=== PATIENT | male | born 1980 | race Native Hawaiian/Other Pacific Islander ===

== ENCOUNTER 2019-06-12 12:16 | Emergency (ER) | payer BC ==
[~2019-06-12] VITALS: Ht 182.9 cm; Wt 79.4 kg
[2019-06-12 12:46] VITALS: TEMP 97.5
[2019-06-12 14:04] VITALS: BP 133/82
== END 2019-06-12 13:50 | disposition home or self-care (01) ==
LOC: ED 12:16
PROC: 0HQFXZZ Repair Right Hand Skin, External Approach (ICD-10-PCS; principal; 2019-06-12)
DX: S61.210A Laceration without foreign body of right index finger without damage to nail, initial encounter (principal); X58.XXXA Exposure to other specified factors, initial encounter
CPT/HCPCS: 90471; 90715; 99283; J7040